=== PATIENT | female | born 1965 | race Caucasian/White ===

== ENCOUNTER 2018-08-01 06:20 | Day surgery (SDC) | payer OTHER ==
[~2018-08-01] VITALS: Ht 152.4 cm; Wt 68.5 kg
[2018-08-01] MEDS ORDERED: LIDOCAINE 4% SOLUTION 50 ML BTL ONE (07:33)
[2018-08-01 07:36] VITALS: BP 122/72; PULSE 68; RESP 14
[2018-08-01 07:37] VITALS: Ht 152.4 cm; Wt 68.5 kg
[2018-08-01] MEDS ORDERED: MULTIVITAMIN (07:40)
[2018-08-01] MEDS ORDERED: GABAPENTIN (07:40)
[2018-08-01] MEDS ORDERED: OMEPRAZOLE (07:40)
[2018-08-01] MEDS ORDERED: VITAMIN D (07:40)
[2018-08-01] MEDS ORDERED: MIDAZOLAM 1 MG/ML 2 ML INJ ONE ×2 (08:53)
[2018-08-01] MEDS ORDERED: FENTAnyl 50 MCG/ML VIAL ONE (08:53)
[2018-08-01 09:17] VITALS: BP 103/70; PULSE 60; RESP 14
== END 2018-08-01 11:43 | disposition home or self-care (01) ==
LOC: GIL 06:20
PROVIDERS: ATTEND Internal Medicine Gastroenterology
DX: Z12.11 Encounter for screening for malignant neoplasm of colon (principal); D12.5 Benign neoplasm of sigmoid colon; K29.50 Unspecified chronic gastritis without bleeding
CPT/HCPCS: 43239; 45380; 88305; 88312; J2250; J3010; Z7610

== ENCOUNTER 2019-03-05 07:34 | Day surgery (SDC) | payer OTHER ==
[~2019-03-05] VITALS: Ht 147.3 cm; Wt 61.3 kg
[2019-03-05] VITALS (14 sets, daily range): BP systolic 104–132; BP diastolic 57–76; PULSE 61–98; RESP 12–23; Ht 147.3 cm; Wt 61.3 kg
[~2019-03-05 07:34] MED LIST: GABAPENTIN; MULTIVITAMIN; OMEPRAZOLE; VITAMIN D
[2019-03-05] MEDS ORDERED: CEFAZOLIN 2 GM/50 ML (PMX) 50 ML IVPB ONE (08:30)
[2019-03-05] MEDS ORDERED: SOD CHLORIDE 0.9% 1,000 ML IV ONE (08:30)
[2019-03-05] MEDS ORDERED: ACETAMINOPHEN 500 MG TAB PO ONE (09:30)
--- NOTE | 2019-03-05 09:32 | PREAC ---
Date/Time of Note Date/Time of Note DATE: 03/05/19 TIME: :31 Anesthesia Eval and Record Evaluation Time Pre-Procedure Interview DATE: 03/05/19 TIME: 09:31 Age 53 Sex female NPO: 8 hrs Preoperative diagnosis hemorrhoids Planned procedure anal exam under anesthesia Past Medical History Past Medical History: Includes (gastritis/ulcer) Surgery & Anesthesia Issues No known issue Meds Anticoagulation: No Beta Parish within 24 hr: No Reason Beta Parish not given: Pt. not on B-Parish Discontinued Reported Medications [Multivitamin] No Conflict Check 08/01/18 [Vitamin D] No Conflict Check 08/01/18 [Omeprazole] No Conflict Check 08/01/18 [Gabapentin] No Conflict Check 08/01/18 Current Medications Sodium Chloride 1,000 ml @ 75 mls/hr [id number] ONCE IV Last administered on 03/05/19at 09:10; Admin Dose 75 MLS/HR; Start 03/05/19 at 08:30; Stop 03/05/19 at 21:49 Meds reviewed: Yes Allergies Coded Allergies: Pork/Porcine Containing Products (Unverified Allergy, Intermediate, HIVES, 03/05/19) cat dander (Unverified Allergy, Unknown, 03/05/19) Allergies Reviewed: Yes Labs/Studies Labs Reviewed: Reviewed by anesthesiologist test: Negative Pre-procedure Exam Last vitals Vital Signs Date Temp Pulse Resp B/P (MAP) Pulse Ox O2 O2 Flow FiO2 Time Delivery Rate 03/05/19 97.8 61 16 132/76 100 Room Air 09:21 (94) Airway: Adequate mouth opening, Adequate thyromental dist Mallampati: Mallampati II Teeth: Normal Lung: Normal Heart: Normal ASA Physical Status ASA physical status: 2 Emergency: None Planned Anesthetic General/MAC: LMA Pre-operative Attestations Prior to commencing anesthesia and surgery, the patient was re-evaluated, there was verification of: *The patient's identity *The results of appropriate recent lab work and preoperative vital signs *The above evaluation not changing prior to induction *Anesthetic plan, risk benefits, alternative and complications discussed with patient/family; questions answered; patient/family understands, accepts and wishes to proceed. CAYLA FRIEDMAN Mar 05, 2019 09:32
[2019-03-05] MEDS ORDERED: BUPIVACAINE 0.25%/EPI (SDV) 10 ML INJ ONE (10:06)
[2019-03-05] MEDS ORDERED: NEOMYC/POLYMYX/BACIT 30 GM OINT ONE (10:07)
[2019-03-05] MEDS ORDERED: EPINEPHrine 1 MG/ML 30 ML INJ ONE (10:07)
[2019-03-05] MEDS ORDERED: METOCLOPRAMIDE 10 MG INJ ONE (10:13)
[2019-03-05] MEDS ORDERED: ROCURONIUM 50 MG INJ ONE (10:13)
[2019-03-05] MEDS ORDERED: CEFAZOLIN 1 GM INJ ONE (10:13)
[2019-03-05] MEDS ORDERED: FAMOTIDINE 20 MG INJ ONE (10:13)
[2019-03-05] MEDS ORDERED: MIDAZOLAM 1 MG/ML 2 ML INJ ONE (10:13)
[2019-03-05] MEDS ORDERED: LIDOCAINE 2% (SDV) 5 ML INJ ONE (10:13)
[2019-03-05] MEDS ORDERED: FENTAnyl 50 MCG/ML VIAL ONE (10:13)
[2019-03-05] MEDS ORDERED: PROPOFOL 40 ML ONE (10:13)
[2019-03-05] MEDS ORDERED: ONDANSETRON 4 MG INJ ONE (10:13)
[2019-03-05] MEDS ORDERED: SILVER SULFADIAZINE 1% 400 GM CR TOP ONE (12:09)
[2019-03-05] MEDS ORDERED: GENTAMICIN 80 MG INJ ONE (13:16)
[2019-03-05] MEDS ORDERED: LIDOCAINE 1% (MPF) 30 ML INJ ONE (13:37)
--- NOTE | 2019-03-05 13:38 | RADRPT ---
Vent Rate: 62 bpm RR Interval: 964 msec OR Interval: 145 msec QRS Duration: 109 msec QT Interval: 412 msec QTC Interval: 420 msec P-R-T [place]: 24 - -8 - -46 degrees Sinus rhythm...normal P axis, V-rate 50- 99 Nonspecific T abnormalities, diffuse leads...T <-0.10mV, ant/lat/inf Electronically Signed By: Denny Sosa
[2019-03-05] MEDS ORDERED: EPHEDrine 25 MG/5 ML SYG ONE (13:43)
[2019-03-05] MEDS ORDERED: SUGAMMADEX SODIUM 200 MG/2 ML VIAL IV ONE (13:54)
--- NOTE | 2019-03-05 14:23 | PAC ---
Date/Time of Note Date/Time of Note DATE: 03/05/19 TIME: 14:22 Post-Anesthesia Notes Post-Anesthesia Note Last documented vital signs Vital Signs Date Temp Pulse Resp B/P Pulse Ox O2 O2 Flow FiO2 Time (MAP) Delivery Rate 03/05/19 97.8 98.5 61 95 16 16 132/76 100 100 Room 09:21 141 (94) 110 Air face 7 /57 mask 6L Activity: WNL Respiratory function: WNL Cardiovascular function: WNL Mental status: Baseline Pain reasonably controlled: Yes Hydration appropriate: Yes Nausea/Vomiting absent: Yes CAYLA FRIEDMAN Mar 05, 2019 14:23
[2019-03-05] MEDS ORDERED: HYDROmorphONE 1 MG/5 ML IV SYRINGE IV PRN ×3 (14:30)
[2019-03-05] MEDS ORDERED: hydrALAzine 20 MG INJ IV PRN (14:30)
[2019-03-05] MEDS ORDERED: EPHEDrine 25 MG/5 ML SYG IV PRN (14:30)
[2019-03-05] MEDS ORDERED: FENTAnyl 50 MCG/ML VIAL IV PRN ×2 (14:30)
[2019-03-05] MEDS ORDERED: ALBUTEROL 0.083% (NEB) 2.5 MG/3 ML AMP HHN PRN (14:30)
[2019-03-05] MEDS ORDERED: DIPHENHYDRAMINE 50 MG INJ IV PRN (14:30)
[2019-03-05] MEDS ORDERED: ONDANSETRON 4 MG INJ IV PRN ×2 (14:30→15:00)
[2019-03-05] MEDS ORDERED: MEPERIDINE 25 MG INJ IV PRN (14:30)
[2019-03-05] MEDS ORDERED: LABETALOL HCL 20MG INJ IV PRN (14:30)
[2019-03-05] MEDS ORDERED: LACTATED RINGER'S 1,000 ML IV SCH (14:31)
--- NOTE | 2019-03-05 14:31 | SIPON ---
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 Postoperative Diagnosis 1 chronic anal fissure anteriorly at 12 o'clock position 2 skin tag and external hemorrhoid at 12 o'clock position lithotomy. Several grade 2 internal hemorrhoids at 5:00 7:00 and 11:00 lithotomy position. Operation/Procedure Performed 1. Sigmoidoscopy up to 22 cm. 2 excision of the skin tag and external hemorrhoid Suture ligature of the pedicle of grade 2 internal hemorrhoids at 7 5 and 11 o'clock position 4 partial lateral internal sphincterotomy at 3 o'clock position. Surgeon see signature line assistant professor of criminal justice None Anesthesia: general, other (Local) Estimated blood loss: 10 - 50 ml's Transfusion Required none Specimen The external hemorrhoid and a skin tag from 12 o'clock position. Grafts/Implants none Complications none CHRIS SON MD Mar 05, 2019 14:30
--- NOTE | 2019-03-06 16:05 | OPR ---
Date/Time of Note Date/Time of Note DATE: 03/06/19 TIME: 15:42 Operative Report Procedure Date: Mar 05, 2019 Preoperative Diagnosis 1 chronic anal fissure anterior location at 12:00 lithotomy position with fissure ulcer and skin tag. Internal hemorrhoids with bleeding Postoperative Diagnosis 1 chronic anterior fissure at 12:00 lithotomy position with the skin tag and fissure ulcer. Grade 1 and 2 internal hemorrhoids. Operation/Procedure Performed 1. Rigid sigmoidoscopy up to 22 cm. 2 ligation of internal hemorrhoids grade 2 pediculus at 5 o'clock position and 7 and 11 o'clock position lithotomy. Partial lateral internal sphincterotomy at 3 o'clock position. Excision of external hemorrhoid and a skin tag from 12 o'clock position. Surgeon see signature line Dairy Specialist None Anesthesia Type: general, other (Local) Estimated Blood Loss: 10 - 50 ml's Transfusion none Specimen Yes the skin tag and external hemorrhoid from 12:00 was sent for pathology evaluation Grafts/Implants none Tubes/Drains None Complications none Pt Condition Post Procedure: stable Disposition: home Indications 53-year-old female presented to the clinic complaining of bleeding upon defecation at the end of defecation and also when she had a colonoscopy at [facility] about a year ago she was told that she has hemorrhoids. Also complaining of severe pain sometimes at the end of the defecation. Evaluation in the clinic revealed that there was 12:00 anteriorly in lithotomy position chronic seizure and it was difficult to perform digital rectal examination. Skin tag was present. Patient requested operation. Alternative treatments including operation and none operation of the treatment was discussed with the patient. Also complication of procedure for the procedure including possible some degree of incontinence into the flatus or to the soft stool was discussed. Patient stated that she understood and she wanted the operation. Procedure Description Procedure patient was seen and reevaluated in the holding area in the morning of operation and then was transferred to the operating room. Patient was placed on the operating table supine position anesthesia was induced by the anesthesiologist. Patient was given lithotomy position. Perineal area was prepped with Betadine and draped in a sterile fashion. Timeout was called patient was identified. 2 g of Ancef and 80 mg of gentamicin was given to the patient by the anesthesiologist. Rigid sigmoidoscopy was performed up to 22 cm no pathology no polyp was seen except that there was grade 1 or 2 internal hemorrhoids. All through the operation a mixture of quarter percent Marcaine with epinephrine +30 cc of lidocaine 1% was used for local anesthesia. After sigmoidoscopy then at 3 o'clock position local anesthesia was given and the skin incision was made and internal sphincter muscle was identified about 7 mm of the diameter of this muscle was with a clamp and then was divided with electrocautery. By digital anal dilatation was performed on this divided part of the sphincter was . Then anal retractor was applied. At the 11 o'clock position grade 2 hemorrhage internal was identified. Blood vessels at the pedicle of the pocket of the hemorrhoid was suture ligated with 2-0 chromic [id number] suture was applied. Same was performed for. Pocket of hemorrhoid at 7:00 and 5 o'clock position lithotomy. The external hemorrhoid and skin tag at 12 o'clock position was excised and the wound was left open. At this time complete evaluation of the anal canal was performed all around it was no evidence of bleeding. Pursue fertilizing cream was applied around the anal area and packed with sterile 4 x 4's and tape to the gluteal area. End of the procedure at this time. She tolerated procedure well the sponge needle instrument count reported to be correct x2. Lithotomy position was changed to supine position. Patient was extubated by anesthesiologist and transferred to recovery room in stable condition. CHRIS SON MD Mar 06, 2019 15:53
== END 2019-03-05 16:19 | disposition home or self-care (01) ==
LOC: SDS 07:34
DX: K60.1 Chronic anal fissure (principal); K64.1 Second degree hemorrhoids; K64.4 Residual hemorrhoidal skin tags
CPT/HCPCS: 46250; 46945; 71045; 80048; 84703; 85025; 85610; 85730; 88304; 93005; J1580; J2250; J2405; J2765; J3010; Z7512; Z7610; J0171; J0690